=== PATIENT | male | born 1980 | race African-American/Black ===

== ENCOUNTER 2016-07-25 08:43 | Inpatient (IN) | payer MEDICARE, OTHER ==
[~2016-07-25] VITALS: Ht 175.3 cm; Wt 81.4 kg
[~2016-07-25 08:43] MED LIST: HALO100P IM; NEUR300C PO
[2016-07-25 08:45] VITALS: BP 142/85; PULSE 99; RESP 20; TEMP 97.9; O2SAT 96
[2016-07-25 10:24] VITALS: BP 111/62; PULSE 82; RESP 18; TEMP 97.9; O2SAT 98
[2016-07-25 10:37] LABS: AUTOMATED NEUTROPHIL # 8.5 TH/MM3 (1.8-7.7); BASOPHIL % 0.5 % (0.0-2.0); EOSINOPHIL # 0.2 TH/MM3 (0-0.4); EOSINOPHIL % 2.2 % (0.0-4.0); HEMATOCRIT 45.7 % (39.0-51.0); HEMO FLAGS DIFF FINAL; LYMPH % 9.8 % (9.0-44.0); MEAN CELL VOLUME 88.4 FL (80.0-100.0); MEAN CORPUSCULAR HGB CONC 35.1 % (32.0-36.0); MONO % 6.4 % (0.0-8.0); NEUT % 81.1 % (16.0-70.0); PLATELET COUNT 232 TH/MM3 (150-450); RED BLOOD COUNT 5.17 MIL/MM3 (4.50-5.90); RED CELL DISTRIBUTION WIDTH 13.9 % (11.6-17.2); WHITE BLOOD COUNT 10.4 TH/MM3 (4.0-11.0)
[2016-07-25 10:56] LABS: ANION GAP 7 MEQ/L (5-15); BICARBONATE 27.2 MEQ/L (21.0-32.0); BLOOD UREA NITROGEN 20 MG/DL (7-18); CHLORIDE 102 MEQ/L (98-107); GLOMERULAR FILTRATION RATE 78 ML/MIN (>89); POTASSIUM 3.9 MEQ/L (3.5-5.1); SODIUM (NA) 136 MEQ/L (136-145)
[2016-07-25 11:00] LABS: ALKALINE PHOSPHATASE 65 U/L (45-117); ALT (GPT) 46 U/L (12-78); AST (GOT) 47 U/L (15-37); TOTAL BILIRUBIN ADULT 0.7 MG/DL (0.2-1.0)
--- NOTE | 2016-07-25 11:33 | PD ---
HPI Chief Complaint: Psychiatric Symptoms Time Seen by Provider: 11:30 Travel History International Travel<30 days: No Contact w/Intl Traveler<30days: No Traveled to known affect area: No History of Present Illness HPI 35-year-old Afro-Indian male presents the emergency department with reports of "hearing voices". Patient states he took a pill that his friend gave him that he said was Tylenol, but the patient is unsure if it is truly what it was. He now states he's been hearing voices since that time. Patient has been prescribed Haldol which he is unsure if he has been taking appropriately. He denies any medical issues or problems at this time. He is allergic to Abilify and Risperdal. PFSH Past Medical History Anxiety: Yes Depression: Yes Cardiovascular Problems: Yes (Cardiac Arrest during tendon surgery) Diminished Hearing: No Gastrointestinal Disorders: No Headaches: No Hypertension: Yes Implanted Vascular Access Dvce: No Psychiatric: Yes Respiratory: No Immunizations Current: Yes Schizophrenia: Yes Past Surgical History Other Surgery: Yes (chest tube in past) Social History Alcohol Use: Yes Tobacco Use: Yes (06/12 ppd) Allergies-Medications (Allergen,Severity, Reaction): Coded Allergies: Abilify (Verified Allergy, Intermediate, 07/25/16) VERIFIED WITH PATIENT THAT HE IS NOT ALLERGIC Risperdal (Verified Allergy, Mild, 07/25/16) PATIENT VERIFIED THAT HE IS NOT ALLERGIC Reported Meds & Prescriptions Reported Meds & Active Scripts Active Reported Neurontin (Gabapentin) 300 Mg Cap 300 Mg PO TID Haldol (Decanoate) 100 mg Ampule (Haloperidol Decanoate) 100 Mg/Ml Inj 100 Mg IM Q28D Review of Systems Except as stated in HPI: all other systems reviewed are Neg General / Constitutional: No: Fever Eyes: No: Visual changes HENT: No: Headaches Cardiovascular: No: Chest Pain or Discomfort Respiratory: No: Shortness of Breath Gastrointestinal: No: Abdominal Pain Genitourinary: No: Dysuria Musculoskeletal: No: Pain Skin: No Rash Neurologic: No: Weakness Psychiatric: Positive: Disorder of Thought, Other (auditory hallucination), No : Anxiety, Depression, Suicidal Ideations, Mood Disorder, Substance Abuse, Homicidal Ideation Endocrine: No: Polydipsia Hematologic/Lymphatic: No: Easy Bruising Physical Exam Narrative GENERAL: Patient is seen in J pod in no acute distress. SKIN: Warm and dry. Normal color. Normal turgor. No signs of trauma. HEAD: Atraumatic. Normocephalic. EYES: Pupils equal and round. No scleral icterus. No injection or drainage. ENT: No nasal bleeding or discharge. Mucous membranes pink and moist. Pharynx is clear. NECK: Trachea midline. Supple and nontender. CARDIOVASCULAR: Regular rate and rhythm. No murmurs gallops or rubs. RESPIRATORY: No accessory muscle use. Clear to auscultation. Breath sounds equal bilaterally. MUSCULOSKELETAL: Extremities without clubbing, cyanosis, or edema. No obvious deformities. NEUROLOGICAL: Awake and alert. No obvious cranial nerve deficits. Motor grossly within normal limits. Five out of 5 muscle strength in the arms and legs. Normal speech. PSYCHIATRIC: Appropriate mood and affect; insight and judgment normal. Data Data Last Documented VS Vital Signs Date Time Temp Pulse Resp B/P Pulse Ox O2 Delivery O2 Flow Rate FiO2 07/25/16 10:24 97.9 82 18 111/62 98 Room Air Orders Diet Regular Basic (07/25/16 Breakfast) Diet Regular Basic (07/25/16 Lunch) Psych Screen (07/25/16 09:38) Complete Blood Count With Diff (07/25/16 10:02) Comprehensive Metabolic Panel (07/25/16 10:02) Drug Screen, Random Urine (07/25/16 10:02) Alcohol (Ethanol) (07/25/16 10:02) Labs Laboratory Tests Test 07/25/16 10:12 White Blood Count 10.4 TH/MM3 Red Blood Count 5.17 MIL/MM3 Hemoglobin 16.0 GM/DL Hematocrit 45.7 % Mean Corpuscular Volume 88.4 FL Mean Corpuscular Hemoglobin 31.0 PG Mean Corpuscular Hemoglobin 35.1 % Concent Red Cell Distribution Width 13.9 % Platelet Count 232 TH/MM3 Mean Platelet Volume 7.8 FL Neutrophils (%) (Auto) 81.1 % Lymphocytes (%) (Auto) 9.8 % Monocytes (%) (Auto) 6.4 % Eosinophils (%) (Auto) 2.2 % Basophils (%) (Auto) 0.5 % Neutrophils # (Auto) 8.5 TH/MM3 Lymphocytes # (Auto) 1.0 TH/MM3 Monocytes # (Auto) 0.7 TH/MM3 Eosinophils # (Auto) 0.2 TH/MM3 Basophils # (Auto) 0.0 TH/MM3 CBC Comment DIFF FINAL Differential Comment Sodium Level 136 MEQ/L Potassium Level 3.9 MEQ/L Chloride Level 102 MEQ/L Carbon Dioxide Level 27.2 MEQ/L Anion Gap 7 MEQ/L Blood Urea Nitrogen 20 MG/DL Creatinine 1.29 MG/DL Estimat Glomerular Filtration 78 ML/MIN Rate Random Glucose 117 MG/DL Calcium Level 9.0 MG/DL Total Bilirubin 0.7 MG/DL Aspartate Amino Transf 47 U/L (AST/SGOT) Alanine Aminotransferase 46 U/L (ALT/SGPT) Alkaline Phosphatase 65 U/L Total Protein 7.9 GM/DL Albumin 4.1 GM/DL Ethyl Alcohol Level LESS THAN 3 MG/DL [facility] Medical Decision Making Medical Screen Exam Complete: Yes Emergency Medical Condition: Yes Differential Diagnosis Psychosis. Auditory hallucination. Possible drug effect. Need for medical clearance for psychiatric evaluation. Narrative Course Patient is medically stable at time of exam. Labs ordered including CBC, CMP, and urine drug screen. Patient is medically cleared for psychiatric evaluation. Diagnosis Primary Impression: Auditory hallucinations Additional Impression: Medical clearance for psychiatric admission Condition: Stable Phillip Lopez Jul 25, 2016 11:33
[2016-07-25 12:57] LABS: AMPHETAMINE, URINE NEG (NEG); BARBITURATES, URINE NEG (NEG); COCAINE, URINE NEG (NEG)
--- NOTE | 2016-07-25 14:03 | PD ---
History of Present Illness Chief Complaint: Psychiatric Symptoms Time Seen by Provider: 13:45 Travel History International Travel<30 Days: No Contact w/Intl Traveler<30days: No Known affected area: No Legal Status Legal Status: Voluntary History of Present Illness: History of Present Illness HPI 35-year-old Afro-[place]i male with history of schizophrenia who presents the emergency department on a voluntary basis for psychiatric evaluation. His main complaint is that he has had an increase in auditory hallucinations for the past 12 hours after he took a pill he thought was Tylenol. He further complains of current psychiatric medication not working well. He receives Haldol dec injections prescribed by [facility] and last reported injection was a month ago. He denies any substance use and current toxicology is negative. He does have a past hx opf substance abuse as per EMR. Patient is seen in J pod. Awake , alert and oriented. Dressed in hospital gowns and maintaining basic hygiene. No involuntary movements noted. He answers questions but does not initiate interaction. He appears internally preoccupied and reports increase in voices. He does not elaborate on the content of the voices and states " I don't want to elaborate on that". He denies suicidal or homicidal ideation, intent or plan. Sleeping well, good appetite is reported. I attempted to contact [facility] listed on EMR but unable to leave a message at the listed phone number. PFSH Past Medical History Anxiety: Yes Depression: Yes Cardiovascular Problems: Yes (Cardiac Arrest during tendon surgery) Diminished Hearing: No Gastrointestinal Disorders: No Headaches: No Hypertension: Yes Implanted Vascular Access Dvce: No Psychiatric: Yes Respiratory: No Immunizations Current: Yes Schizophrenia: Yes Past Surgical History Other Surgery: Yes (chest tube in past) Psychiatric History Psychiatric History Hx Psychiatric Treatment: HX OF SCHIZOPHRENIA. IS TAKING HALDOL INJECTION BUT DOES NOT THINK IT IS WORKING. OUTPATIENT CARE AT [facility] History of Inpatient Treatment: Yes Guns or firearms in home: No Social History Single male. Lives with his mother.On disability. Currently on probation Hx Alcohol Use: Yes Hx Tobacco Use: Yes (06/12 ppd) Substance Use Type: Benzos (Valium,Xanax), Cocaine Other Substances Used: PAST HX OF COCAINE AND MARIJUANA Hx of Substance Use Treatment: No Family Psychiatric History Unknown Allergies-Medications (Allergen,Severity, Reaction): Coded Allergies: Abilify (Verified Allergy, Intermediate, 07/25/16) VERIFIED WITH PATIENT THAT HE IS NOT ALLERGIC Risperdal (Verified Allergy, Mild, 07/25/16) PATIENT VERIFIED THAT HE IS NOT ALLERGIC Reported Meds & Prescriptions Reported Meds & Active Scripts Active Reported Neurontin (Gabapentin) 300 Mg Cap 300 Mg PO TID Haldol (Decanoate) 100 mg Ampule (Haloperidol Decanoate) 100 Mg/Ml Inj 100 Mg IM Q28D Review of Systems Constitutional: DENIES: Diaphoretic episodes, Fatigue, Fever, Weight gain, Weight loss, Chills, Dizziness, Change in appetite, Night Sweats Endocrine: DENIES: Heat/cold intolerance, Polydipsia, Polyuria, Polyphagia Eyes: DENIES: Blurred vision, Diplopia, Eye inflammation, Eye pain, Vision loss , Photosensitivity, Double Vision Ears, nose, mouth, throat: DENIES: Tinnitus, Hearing loss, Vertigo, Nasal discharge, Oral lesions, Throat pain, Hoarseness, Ear Pain, Running Nose, Epistaxis, Sinus Pain, Toothache, Odynophagia Respiratory: DENIES: Apneas, Cough, Snoring, Wheezing, Hemoptysis, Sputum production, Shortness of breath Cardiovascular: DENIES: Chest pain, Palpitations, Syncope, Dyspnea on Exertion , PND, Lower Extremity Edema, Orthopnea, Claudication Genitourinary: DENIES: Sexual dysfunction, Urinary frequency, Urinary incontinence, Urgency, Hematuria, Dysuria, Nocturia, Penile Discharge, Testicular Pain, Testicular Swelling Musculoskeletal: DENIES: Joint pain, Muscle aches, Stiffness, Joint Swelling, Back pain, Neck pain Integumentary: DENIES: Abnormal pigmentation, Nail changes, Pruritus, Rash Immunologic/allergic: DENIES: Eczema, Urticaria Neurologic: DENIES: Abnormal gait, Headache, Localized weakness, Paresthesias, Seizures, Speech Problems, Tremor, Poor Balance Psychiatric: COMPLAINS OF: Hallucinations MDM Medical Decision Making Medical Record Reviewed: Yes Assessment/Plan 35 year old male with hx of schizophrenia who presents to ed on a voluntary basis with complaints of increase in auditory hallucinations as well as complaints that current psychiatric medication is not working well. He is requesting inpatient hospitalization at this time. He denies suicidal or homicidal ideation, intent or plan. At this time patient meets criteria for inpatient treatment due to increase in psychiatric symptoms causing distress and inability to function. Orders Diet Regular Basic (07/25/16 Breakfast) Diet Regular Basic (07/25/16 Lunch) Psych Screen (07/25/16 09:38) Complete Blood Count With Diff (07/25/16 10:02) Comprehensive Metabolic Panel (07/25/16 10:02) Drug Screen, Random Urine (07/25/16 10:02) Alcohol (Ethanol) (07/25/16 10:02) Results Vital Signs Date Time Temp Pulse Resp B/P Pulse Ox O2 Delivery O2 Flow Rate FiO2 07/25/16 10:24 97.9 82 18 111/62 98 Room Air 07/25/16 08:45 97.9 99 20 142/85 96 Room Air Laboratory Tests Test 07/25/16 07/25/16 10:12 12:30 White Blood Count 10.4 Red Blood Count 5.17 Hemoglobin 16.0 Hematocrit 45.7 Mean Corpuscular Volume 88.4 Mean Corpuscular Hemoglobin 31.0 Mean Corpuscular Hemoglobin 35.1 Concent Red Cell Distribution Width 13.9 Platelet Count 232 Mean Platelet Volume 7.8 Neutrophils (%) (Auto) 81.1 Lymphocytes (%) (Auto) 9.8 Monocytes (%) (Auto) 6.4 Eosinophils (%) (Auto) 2.2 Basophils (%) (Auto) 0.5 Neutrophils # (Auto) 8.5 Lymphocytes # (Auto) 1.0 Monocytes # (Auto) 0.7 Eosinophils # (Auto) 0.2 Basophils # (Auto) 0.0 CBC Comment DIFF FINAL Differential Comment Sodium Level 136 Potassium Level 3.9 Chloride Level 102 Carbon Dioxide Level 27.2 Anion Gap 7 Blood Urea Nitrogen 20 Creatinine 1.29 Estimat Glomerular Filtration 78 Rate Random Glucose 117 Calcium Level 9.0 Total Bilirubin 0.7 Aspartate Amino Transf 47 (AST/SGOT) Alanine Aminotransferase 46 (ALT/SGPT) Alkaline Phosphatase 65 Total Protein 7.9 Albumin 4.1 Ethyl Alcohol Level LESS THAN 3 Urine Opiates Screen NEG Urine Barbiturates Screen NEG Urine Amphetamines Screen NEG Urine Benzodiazepines Screen NEG Urine Cocaine Screen NEG Urine Cannabinoids Screen NEG Diagnosis Primary Impression: schizophrenia Ruled Out: Medical clearance for psychiatric admission Admitting Information Admitting Physician Requests: Admit Condition: Stable Jossie Jacobsen Jul 25, 2016 14:02
[2016-07-25 14:37] VITALS: BP 124/61; PULSE 78; RESP 16; O2SAT 98
[2016-07-25] MEDS ORDERED: ALUMINUM/MAGNESIUM/SIMETH 30 ML CUP PO PRN (15:00)
[2016-07-25] MEDS ORDERED: MAGNESIUM HYDROXIDE SUSP 30 ML CUP PO PRN (15:00)
[2016-07-25] MEDS ORDERED: ACETAMINOPHEN 325 MG TAB PO PRN (15:00)
[2016-07-25] MEDS ORDERED: OLANZapine ODT 5 MG TAB PO ONE (15:00)
[2016-07-25 16:58] VITALS: BP 121/80; PULSE 71; RESP 17; TEMP 98.2; O2SAT 96
[2016-07-25] MEDS: GABAPENTIN 300 MG CAP PO SCH (17:00)
[2016-07-25] MEDS: NICOTINE 21 MG/24 HR PATCH T-DERMAL SCH (17:00)
[2016-07-26 05:07] VITALS: BP 97/55; PULSE 64; RESP 18; TEMP 97; O2SAT 100
[2016-07-26] MEDS: REMOVE OLD PATCH T-DERMAL SCH (09:00)
[2016-07-26 09:04] LABS: ANION GAP 8 MEQ/L (5-15); BICARBONATE 27.9 MEQ/L (21.0-32.0); BLOOD UREA NITROGEN 15 MG/DL (7-18); CHLORIDE 101 MEQ/L (98-107); GLOMERULAR FILTRATION RATE 79 ML/MIN (>89); HDL CHOLESTEROL 67.6 MG/DL (40.0-60.0); LDL CHOLESTEROL 154 MG/DL (0-99); POTASSIUM 3.7 MEQ/L (3.5-5.1); SODIUM (NA) 137 MEQ/L (136-145)
[2016-07-26] MEDS: NICOTINE 21 MG/24 HR PATCH T-DERMAL SCH (09:06)
[2016-07-26] MEDS: GABAPENTIN 300 MG CAP PO SCH (09:06)
--- NOTE | 2016-07-26 10:55 | HHI.HP ---
Provisional Diagnosis Admission Date Jul 25, 2016 at 14:28 Forreston I. 1. Schizophrenia, paranoid type, acute exacerbation Forreston II. Deferred Forreston V. GAF is 30 presently Certification of Person's Competence To Provide Express and Informed Consent I have personally examined Rj Wood , a [facility] on, Jul 26, 2016 10:55. Express and informed consent means consent voluntarily given in writing, by a competent person, after sufficient explanation and disclosure of the subject matter involved to enable the person to make a knowing and willful decision without any element of force, fraud, deceit, duress, or other form of constraint or coercion. This person is 18 years of age or older, is not now known to be incompetent to consent to treatment with a guardian advocate, and does not have a health care surrogate or proxy currently making medical treatment decisions. I have found this person to be one of the following: [x] Competent to provide express and informed consent, as defined above, for voluntary admission to this facility and is competent to provide express and informed consent for treatment. He/she has the consistent capacity to make well reasoned, willful, and knowing decisions concerning his or her medical or mental health treatment. The person fully and consistently understands the purpose of the admission for examination/placement and is fully capable of personally exercising all rights [place] [] Incompetent to provide express and informed consent to voluntary admission, and this is incompetent to provide express and informed consent to treatment. The person must be transferred to involuntary status and a petition for a guardian advocate filed with the Circuit Court. [] Refusing to provide express and informed consent to voluntary admission but is competent to provide express and informed consent for treatment. The person must be discharged or transferred to involuntary status. Form shall be completed within 24 hours of a person's arrival at the receiving facility and filed in the clinical record of each person: 1. Admitted on a voluntary basis 2. Permitted to provide express and informed consent to his/her own treatment 3. Allowed to transfer from involuntary to voluntary status 4. Prior to permitting a person to consent to his or her own treatment after having been previously found incompetent to consent to treatment. History of Present Illness Capacity: Has Capacity HPI Mr. Wood is a 35-year-old male with a history of schizophrenia who presented on a voluntary basis for psychiatric evaluation complaining of worsening auditory hallucinations. He believes that these hallucinations became exacerbated when he took what he thought was an analgesic from his friend. Patient was evaluated by the psychiatric nurse practitioner who recommended admission to the inpatient psychiatric unit. Reviewing the electronic medical record, I note that the patient was admitted most recently under Dr. Wade in October 2014 and I saw the patient somewhat later that year in consultation when he was medically admitted for a broken mandible. Patient seen and examined with medical student and counselor financial services intern. Chart reviewed. Case discussed with nursing staff. On my examination today, the patient is hypoverbal and flat. He is somewhat reluctant to discuss his psychiatric symptomatology but says that he has indeed been experiencing worsening auditory hallucinations. He says "I don't like to talk about it." He is not sure if these are command in nature but denies any suicidal or homicidal ideation in any event. He says that the auditory hallucinations have been worse since yesterday, and he relates that narrative about taking a pill from a friend. He is unsure if he is experiencing visual hallucinations. Appetite has reportedly been poor but sleep has been fair. He says that he derived a significant amount of benefit from the Zyprexa that he was given yesterday afternoon. No issues with depression or hypomania/zora. Patient is somewhat guarded but there is no alexandrea delusional material. The remainder of the psychiatric ROS is negative. Past psychiatric history: Patient is treated at [facility] for schizophrenia. He sees Jamari at [facility] and also has a manager case management by the name of Rossy. He says that it's been over a year since he was hospitalized last. He denies any history of suicide attempts. Family history: Patient denies any family history of serious mental illness or suicide. Chemical dependency history: The patient denies any abuse of drugs or alcohol. Social history: Patient reports that he had previously been staying with his mother but has been without stable housing for the last several days. I endeavored to explore why this is the case, but he does not wish to discuss it. He does not wish to provide further history at this time. Review of Systems ROS Limitations: Psychotic, Poor Historian Other No reported headache, chest pain, vision or hearing complaints except hallucinations, shortness of breath, bowel or bladder issues. No other physical complaints. Past Psych History Psychological trauma history No reported trauma history to me Violence risk - others (6 mos) Indeterminate Violence risk - self (6 mos) Indeterminate Substance Abuse History Drugs/Alcohol past 12 months See above Past Family Social History Coded Allergies: Abilify (Verified Allergy, Intermediate, 07/25/16) VERIFIED WITH PATIENT THAT HE IS NOT ALLERGIC Risperdal (Verified Allergy, Mild, 07/25/16) PATIENT VERIFIED THAT HE IS NOT ALLERGIC Past Medical History See electronic medical record Reported Medications Gabapentin (Neurontin)300 Mg [id number] Mg PO TID 02/17/16 Haloperidol Decanoate (Haldol (Decanoate) 100 mg Ampule)100 Mg/Ml [id number] Mg IM Q28D 10/21/15 Current Medications Medications (Trade) Dose Ordered Sig/Alexei Route Start Time Stop Time Status Last Admin (Tylenol) 650 mg Q4H PRN PO 07/25/16 15:00 (Milk Of Magnesia Liq) 30 ml DAILY PRN PO 07/25/16 15:00 (Mag-Al Plus Susp Liq) 30 ml Q6H PRN PO 07/25/16 15:00 (Habitrol 21 Mg Patch.24 Hr) 1 patch DAILY T-DERMAL 07/25/16 15:00 07/26/16 09:06 Miscellaneous Information 1 DAILY T-DERMAL 07/26/16 09:00 07/26/16 09:00 (Neurontin) 300 mg TID PO 07/25/16 18:00 07/26/16 09:06 Family History See above Social History See above Patient's Strengths (min. 2) Maintaining basic hygiene. Verbally fluent. Physical Exam Physical examination completed by ED provider. On my examination today, patient is well-nourished and well-developed. He is in no acute physical distress. No motoric abnormalities noted. Labs and vital signs reviewed: Vital Signs Vital Signs Date Time Temp Pulse Resp B/P Pulse Ox O2 Delivery O2 Flow Rate FiO2 07/26/16 05:07 97.0 64 18 97/55 100 07/25/16 14:37 Room Air Lab Results Item Value Date Time White Blood Count 10.4 TH/MM3 07/25/16 1012 Hemoglobin 16.0 GM/DL 07/25/16 1012 Platelet Count 232 TH/MM3 07/25/16 1012 Sodium Level 137 MEQ/L 07/26/16 0800 Potassium Level 3.7 MEQ/L 07/26/16 0800 Chloride Level 101 MEQ/L 07/26/16 0800 Carbon Dioxide Level 27.9 MEQ/L 07/26/16 0800 Blood Urea Nitrogen 15 MG/DL 07/26/16 0800 Creatinine 1.27 MG/DL 07/26/16 0800 Aspartate Amino Transf (AST/SGOT) 47 U/L H 07/25/16 1012 Alanine Aminotransferase (ALT/SGPT) 46 U/L 07/25/16 1012 Alkaline Phosphatase 65 U/L 07/25/16 1012 Basic urine toxicology and alcohol level both negative. Mental Status Examination Patient is in hospital gown. He is fairly well groomed. He is awake and alert and oriented to person and hospital at least. No abnormal motor movements noted. Speech is somewhat slow with increased speech latency. He is generally hypoverbal. Language and fund of knowledge seem average. Mood is somewhat distressed and affect is flat. Thought process slowed but linear. No loosening of associations. Patient is somewhat guarded but no alexandrea paranoia or other delusions. The patient describes auditory hallucinations and possibly visual phenomena as detailed above. Denies any suicidal or homicidal ideation. Insight and judgment are fair. Assessment & Plan Problem List: (1) Schizophrenia, paranoid, chronic with acute exacerbation ICD Code: F20.0 Assessment & Plan This is a 35-year-old male with psychiatric history as detailed above who presents voluntarily for reports of worsening auditory hallucinations. Patient says that these symptoms began after he took what he thought was a Tylenol from a friend. Patient describes ongoing auditory and possible visual hallucinations. He is somewhat guarded. He does deny any suicidal or homicidal ideation. Reviewing the records it appears that he is receiving Haldol Decanoate injections at [facility]. He did find the Zyprexa that he received yesterday afternoon helpful for his psychiatric symptoms, and so I think it might make sense to add this agent temporarily to bring his psychosis once again under good control. Patient requires psychiatric hospitalization at this time for safety, observation and stabilization. Admit inpatient. Voluntary status. Check extended urine toxicology screen. Clarify medication list from [facility]. I will add Zyprexa 5 mg at bedtime for psychosis. Ativan as needed for agitation, Cogentin as needed for EPS, Benadryl as needed for sleep. Vitals every shift. Counselor to see and obtain collateral. Disposition planning. Estimated length of stay: 5-7 days. Discharge Planning Pending psychiatric stabilization Request HC Surrog/Guard Advoc?: No Lito Andrade MD Jul 26, 2016 10:55
[2016-07-26] MEDS ORDERED: LORazepam 2 MG/ML VIAL IM PRN (11:15)
[2016-07-26] MEDS ORDERED: LORazepam 1 MG TAB PO PRN (11:15)
[2016-07-26] MEDS ORDERED: BENZTROPINE MESYLATE 2 MG/2 ML VIAL IM PRN (11:15)
[2016-07-26] MEDS ORDERED: diphenhydrAMINE HCL 50 MG CAP PO PRN (11:15)
[2016-07-26] MEDS ORDERED: BENZTROPINE MESYLATE 1 MG TAB PO PRN (11:15)
[2016-07-26 14:10] LABS: HEMOGLOBIN A1a 0.9 %; HEMOGLOBIN A1b 1.5 %; HEMOGLOBIN Ao 86.9 %; HEMOGLOBIN LA1C 1.8 %; HEMOGLOBIN P3 3.3 %
[2016-07-26 18:47] VITALS: BP 124/82; PULSE 80; RESP 18; TEMP 97.9; O2SAT 99
[2016-07-26] MEDS ORDERED: OLANZapine 10 MG TAB PO SCH (21:00)
[2016-07-26] MEDS: OLANZapine 5 MG TAB PO SCH (21:13)
[2016-07-27 04:49] LABS: AMPHETAMINE, URINE NEG (NEG); BARBITURATES, URINE NEG (NEG); COCAINE, URINE NEG (NEG)
[2016-07-27 05:51] VITALS: BP 111/64; PULSE 56; RESP 16; TEMP 98; O2SAT 98
[2016-07-27] MEDS: REMOVE OLD PATCH T-DERMAL SCH (09:00)
[2016-07-27] MEDS: NICOTINE 21 MG/24 HR PATCH T-DERMAL SCH (09:00)
--- NOTE | 2016-07-27 15:30 | HHI.PYPN ---
Subjective Remarks Pt seen and discussed with staff. He reports that he continues to have AH. He reports that symptoms were well controlled on Haldol dec until he took a "fake tylenol" from a friend. RN contacted [facility] who reports that pt's last Haldol dec 50mg IM adminstration was June 27, 2016. Pt would like to continue haldol dec as has had good success with this medication. No agitation or aggression. Staff report that pt has remained in room all day under covers, due to AH. Objective Alert: Yes [place]: Person, Place, Situation Mood: Anxious Affect: Flat Memory Intact: Immediate, Recent, Remote Hallucinations: Auditory ("terrible things") Delusions: No Delusion Type: Other (none) Suicidal: Ideation (denies) Homicidal: Ideation (denies) Insight/Judgement poor Vitals/IOs Vital Signs Date Time Temp Pulse Resp B/P Pulse Ox O2 Delivery O2 Flow Rate FiO2 07/27/16 05:51 98.0 56 16 111/64 98 07/25/16 14:37 Room Air Intake and Output 07/26/16 07/26/16 07/27/16 08:00 16:00 00:00 Intake Total 720 ml Balance 720 ml Assessment & Plan Problem List: (1) Schizophrenia, paranoid, chronic with acute exacerbation ICD Code: F20.0 Assessment & Plan Will administer Haldol Dec 50mg IM today as is due. Continue bedtime zyprexa temporarily to address exacerbation of psychosis. Estimated LOS: days Justification for Cont. Inpt. impairments in reality construction. Request HC Surrog/Guard Advoc?: Kaci Bernstein MD Jul 27, 2016 15:30
[2016-07-27] MEDS: HALOPERIDOL DECANOATE 50 MG/ML VIAL IM SCH ×2 (16:00→16:30)
[2016-07-27 18:48] VITALS: BP 114/61; PULSE 65; RESP 16; TEMP 98.6; O2SAT 98
[2016-07-27] MEDS: OLANZapine 5 MG TAB PO SCH (20:45)
[2016-07-28 05:29] VITALS: BP 115/68; PULSE 65; RESP 17; TEMP 98.1; O2SAT 100
[2016-07-28] MEDS: REMOVE OLD PATCH T-DERMAL SCH (09:00)
[2016-07-28] MEDS: NICOTINE 21 MG/24 HR PATCH T-DERMAL SCH (09:35)
--- NOTE | 2016-07-28 16:13 | HHI.PYPN ---
Subjective Remarks Pt seen and discussed with staff. Yesterday, pt refused haldol deconate injection. Pt states that he feels that haldol did not help symptoms and he continued to hear voices and feel paranoid even before taking unknown substance from his cousin. He states that he does feel zyprexa is helpful and would prefer to take that instead. He reports AH continue to be impairing but he has been able to "fight them" a bit better today. He has been out of room more this afternoon. Objective Alert: Yes [place]: Person, Place, Date, Situation Mood: Anxious Affect: Flat Memory Intact: Immediate, Recent, Remote Hallucinations: Auditory ("terrible things") Delusions: No Delusion Type: Other (none) Suicidal: Ideation (denies) Homicidal: Ideation (denies) Insight/Judgement limited Vitals/IOs Vital Signs Date Time Temp Pulse Resp B/P Pulse Ox O2 Delivery O2 Flow Rate FiO2 07/28/16 05:29 98.1 65 17 115/68 100 07/25/16 14:37 Room Air Assessment & Plan Problem List: (1) Schizophrenia, paranoid, chronic with acute exacerbation ICD Code: F20.0 Assessment & Plan As pt is refusing to continue haldol deconoate, will titrate zyprexa to target psychosis. Estimated LOS: days Justification for Cont. Inpt. impairments in reality construction. Request HC Surrog/Guard Advoc?: Kaci Bernstein MD Jul 28, 2016 16:13
[2016-07-28 18:27] VITALS: BP 125/75; PULSE 70; RESP 16; TEMP 98.2; O2SAT 98
[2016-07-28] MEDS ORDERED: OLANZapine 10 MG TAB PO SCH (21:00)
[2016-07-29 05:00] VITALS: BP 130/69; PULSE 78; RESP 18; TEMP 98.1; O2SAT 96
[2016-07-29] MEDS: REMOVE OLD PATCH T-DERMAL SCH (08:24)
[2016-07-29] MEDS: NICOTINE 21 MG/24 HR PATCH T-DERMAL SCH (08:24)
--- NOTE | 2016-07-29 14:50 | HHI.PYPN ---
Subjective Remarks Patient seen and examined. Chart reviewed. Case discussed with nursing staff who reports patient is fairly seclusive to room. On my examination today, patient is awake and alert and more interactive than when I saw him last. He continues to complain of vague auditory hallucinations. When specifically asked he does say that these are command in nature, but it is not clear what they are commanding him to do. No evidence of any suicidality or violence on the unit so far. Patient denies any suicidal or homicidal ideation. He says that his optics technical officer wants him to get into a six-month chemical dependency program and he wonders if we can help with this. He denies side effects from Zyprexa and is agreeable to titrating this agent. He is not interested in continuing with Haldol Decanoate. Review of Systems Other No physical complaints today Objective Alert: Yes [place]: Person, Place, Date, Situation Mood: Calm Affect: Flat Memory Intact: Comment (seems fair on clinical exam) Hallucinations: Auditory (reports command auditory hallucinations, vague) Delusions: No Delusion Type: Other (no delusional material) Suicidal: Ideation (denies suicidal ideation) Homicidal: Ideation (denies homicidal ideation) Insight/Judgement Fair Remarks No abnormal motor movements noted. Thought process linear. Speech within normal limits for rate, tone and volume. Labs Labs reviewed. No new labs. Extended urine toxicology pending. Vitals/IOs Vital Signs Date Time Temp Pulse Resp B/P Pulse Ox O2 Delivery O2 Flow Rate FiO2 07/29/16 05:00 98.1 78 18 130/69 96 07/25/16 14:37 Room Air Assessment & Plan Problem List: (1) Schizophrenia, paranoid, chronic with acute exacerbation ICD Code: F20.0 Assessment & Plan Titrate Zyprexa to 15 mg at bedtime. I discussed the case with counselor and asks that he provide the patient with resources to try to achieve his goal of some sort of long-term drug and alcohol treatment program. Continue to observe on the inpatient unit. Continue other medications and care as ordered. Justification for Cont. Inpt. Impairments in reality construction. Monitoring for impairments in safety. Medication changes in process. Risk for decompensation in a lower level of care. Discharge Planning Pending psychiatric stabilization. Request HC Surrog/Guard Advoc?: No Lito Andrade MD Jul 29, 2016 14:50
[2016-07-29 17:22] VITALS: BP 134/80; PULSE 65; RESP 18; TEMP 98; O2SAT 98
[2016-07-29] MEDS ORDERED: OLANZapine 10 MG TAB PO SCH (21:00)
[2016-07-30 05:32] VITALS: BP 104/57; PULSE 65; RESP 18; TEMP 98; O2SAT 94
[2016-07-30] MEDS: REMOVE OLD PATCH T-DERMAL SCH (08:40)
[2016-07-30] MEDS: NICOTINE 21 MG/24 HR PATCH T-DERMAL SCH (08:41)
--- NOTE | 2016-07-30 17:35 | HHI.PYPN ---
Subjective Remarks Patient seen and examined. Chart reviewed. Case discussed with counselor and nursing staff in treatment team. Per nursing staff, no behavioral problems. On my examination today, the patient seems to be in good spirits. His affect is bright, full and reactive. He reports that he has been calling around extensively to try to get into the sort of long-term chemical dependency treatment program requested by his strike warfare/missile systems officer. He says that he is still experiencing some auditory hallucinations but these are improving with Zyprexa. He requests that we titrate the Zyprexa dose. He denies side effects from this or other medications. Review of Systems Other No physical complaints today Objective Alert: Yes [place]: Person, Place, Date, Situation Mood: Calm Affect: Euthymic (full and reactive) Memory Intact: Comment (seems fair on clinical exam) Hallucinations: Auditory (does not describe any CAH today. Ongoing vague auditory hallucinations.) Delusions: No Delusion Type: Other (no delusions) Suicidal: Ideation (no SI) Homicidal: Ideation (no HI) Insight/Judgement Fair Remarks No abnormal motor movements noted. Thought process linear. Speech within normal limits for rate, tone and volume. Grooming and hygiene seem good. Labs Labs reviewed. No new labs. Extended urine toxicology pending. Vitals/IOs Vital Signs Date Time Temp Pulse Resp B/P Pulse Ox O2 Delivery O2 Flow Rate FiO2 07/30/16 05:32 98.0 65 18 104/57 94 Assessment & Plan Problem List: (1) Schizophrenia, paranoid, chronic with acute exacerbation ICD Code: F20.0 Assessment & Plan Titrate Zyprexa to target residual psychotic symptoms. Patient overall seems to be improving significantly. Patient to continue to call around to try to get into a long-term chemical dependency program. Counselor to assist with this as necessary. Continue other medications and care as ordered. Justification for Cont. Inpt. Resolving impairments in reality construction. Medication changes. Discharge Planning Ideally, discharge to a chemical dependency treatment program as outlined above. Request HC Surrog/Guard Advoc?: No Lito Andrade MD Jul 30, 2016 17:35
[2016-07-30 20:44] VITALS: BP 117/80; PULSE 80; RESP 18; TEMP 96; O2SAT 98
[2016-07-30] MEDS ORDERED: OLANZapine 10 MG TAB PO SCH (21:00)
[2016-07-31 05:03] VITALS: BP 104/55; PULSE 62; RESP 18; TEMP 98.1; O2SAT 94
[2016-07-31] MEDS: NICOTINE 21 MG/24 HR PATCH T-DERMAL SCH (08:30)
[2016-07-31] MEDS: REMOVE OLD PATCH T-DERMAL SCH (08:30)
[2016-07-31] MEDS ORDERED: ZYPR20TA PO (13:42)
--- NOTE | 2016-07-31 13:42 | HHI.DS ---
Psychiatry Discharge Summary Inpatient Psychiatric care?: Yes Advance Directive: No Reason Not Provided: Due to Patient Condition Mental Health AdvanceDirective: No Health Care Proxy: No Admission Admission Date Jul 25, 2016 at 14:28 Admission Diagnosis: (1) Schizophrenia, paranoid, chronic with acute exacerbation ICD Code: F20.0 Brief History Mr. Wood is a 35-year-old male with a history of schizophrenia who presented on a voluntary basis for psychiatric evaluation complaining of worsening auditory hallucinations. He believes that these hallucinations became exacerbated when he took what he thought was an analgesic from his friend. Patient was evaluated by the psychiatric nurse practitioner who recommended admission to the inpatient psychiatric unit. Reviewing the electronic medical record, I note that the patient was admitted most recently under Dr. Wade in October 2014 and I saw the patient somewhat later that year in consultation when he was medically admitted for a broken mandible. Patient seen and examined with medical student and counselor customer marketing intern. Chart reviewed. Case discussed with nursing staff. On my examination today, the patient is hypoverbal and flat. He is somewhat reluctant to discuss his psychiatric symptomatology but says that he has indeed been experiencing worsening auditory hallucinations. He says "I don't like to talk about it." He is not sure if these are command in nature but denies any suicidal or homicidal ideation in any event. He says that the auditory hallucinations have been worse since yesterday, and he relates that narrative about taking a pill from a friend. He is unsure if he is experiencing visual hallucinations. Appetite has reportedly been poor but sleep has been fair. He says that he derived a significant amount of benefit from the Zyprexa that he was given yesterday afternoon. No issues with depression or hypomania/zora. Patient is somewhat guarded but there is no alexandrea delusional material. The remainder of the psychiatric ROS is negative. Past psychiatric history: Patient is treated at [facility] for schizophrenia. He sees Jamari at [facility] and also has a case management social worker by the name of Rossy. He says that it's been over a year since he was hospitalized last. He denies any history of suicide attempts. Family history: Patient denies any family history of serious mental illness or suicide. Chemical dependency history: The patient denies any abuse of drugs or alcohol. Social history: Patient reports that he had previously been staying with his mother but has been without stable housing for the last several days. I endeavored to explore why this is the case, but he does not wish to discuss it. He does not wish to provide further history at this time. Tobacco Use In Past 30 Days: 5 or More Cigarettes/Day Alcohol Use: Never Hospital Course Patient was admitted to a locked, inpatient psychiatric unit. Appropriate precautions were in place throughout patient's hospital stay. Patient was seen and examined daily on the unit by psychiatry and also visited by counselor. Medications were adjusted. Patient tolerated medications well without side effects. Patient had improvement in his presenting psychiatric symptomatology. There was no evidence of any suicidality or homicidality on the inpatient unit. Patient remained in good behavioral control and was compliant with medications except the Haldol Decanoate which he did not wish to continue. Reviewing clinical data it appears that the patient is sleeping and eating well. On the day of discharge: Patient seen and examined. Chart reviewed. Case discussed with nursing staff. No behavioral problems reported. On my examination today, the patient is requesting discharge from the inpatient psychiatric unit. He says that he has been in contact with a dealer compliance representative from the [facility] and wants to be discharged so that he can meet up with this dealer compliance representative and his outpatient social service liaison to facilitate entry into a treatment program at [facility]. He denies any suicidal or homicidal ideation on direct questioning. Affect is full and reactive. He denies any audiovisual hallucinations saying that he has not heard any voices since this morning. He denies any command auditory hallucinations. I can elicit no paranoia, no ideas of reference, no feelings of thought insertion or withdrawal or grandiosity or other delusional material. He is tolerating the Zyprexa well without side effects and says that he will remain adherent with this medication. He is agreeable to following up on an outpatient basis with psychiatry. Weighing the acute, chronic, and protective factors, I appellate court judge that the patient does not meet criteria presently for involuntary psychiatric hospitalization under the [place] act. At the same time, the patient reports that his auditory hallucinations only resolved this morning. I have strongly recommended that the patient remain on the inpatient psychiatric unit for further observation to ensure that his psychiatric symptomatology remains improved. The patient refuses and insists on discharge today. Given that I have no basis to retain him involuntarily at this time I will arrange for his discharge AGAINST MEDICAL ADVICE. I have explained to the patient that he is leaving AGAINST MEDICAL ADVICE and he understands. Patient is to follow-up psychiatrically as arranged by counselor. Patient is also to follow-up with primary care. I have counseled the patient regarding warning signs for need to return to the psychiatric emergency room as part of a general safety plan. Results Blood Pressure 104 / 55 Vital Signs Date Time Temp Pulse Resp B/P Pulse Ox O2 Delivery O2 Flow Rate FiO2 07/31/16 05:03 98.1 62 18 104/55 94 Item Value Date Time White Blood Count 10.4 TH/MM3 07/25/16 1012 Hemoglobin 16.0 GM/DL 07/25/16 1012 Platelet Count 232 TH/MM3 07/25/16 1012 Sodium Level 137 MEQ/L 07/26/16 0800 Potassium Level 3.7 MEQ/L 07/26/16 0800 Chloride Level 101 MEQ/L 07/26/16 0800 Carbon Dioxide Level 27.9 MEQ/L 07/26/16 0800 Blood Urea Nitrogen 15 MG/DL 07/26/16 0800 Creatinine 1.27 MG/DL 07/26/16 0800 Aspartate Amino Transf (AST/SGOT) 47 U/L H 07/25/16 1012 Alanine Aminotransferase (ALT/SGPT) 46 U/L 07/25/16 1012 Alkaline Phosphatase 65 U/L 07/25/16 1012 Hemoglobin A1c 5.0 % 07/26/16 0800 Urine Opiates Screen NEG 07/25/16 1230 Urine Barbiturates Screen NEG 07/25/16 1230 Urine Amphetamines Screen NEG 07/25/16 1230 Urine Benzodiazepines Screen NEG 07/25/16 1230 Urine Cocaine Screen NEG 07/25/16 1230 Urine Cannabinoids Screen NEG 07/25/16 1230 Ethyl Alcohol Level LESS THAN 3 MG/DL 07/25/16 1012 Summary of Procedures None done Imaging None done Pending results at discharge: Yes (Extended UTox.) Medications # of Antipsychotic meds at D/C: 1 Approp Antipsych med options 1 - Minimum of three failed multiple trials of monotherapy. 2 - Documented plan to taper to monotherapy due to previous use of multiple meds OR cross-taper in progress at D/C. 3 - Documentation of augmentation of Clozapine. 4 - Justification other than those listed in allowable values 1-3, document here : Discharge Discharge Date: Jul 31, 2016 Discharge Diagnosis: (1) Paranoid type schizophrenia, chronic state Diagnosis: Principal ICD Code: F20.0 GAF on discharge is 55. Mental Status Exam at Disch Patient is casually dressed. He is well groomed. He is awake and alert and oriented 3. No abnormal motor movements noted. Speech is within normal limits for rate, tone and volume. Language and fund of knowledge seemed average. Mood is fair and affect is full and reactive. Thought process linear. No loosening of associations. No evident delusions. Denies audiovisual hallucinations. Denies suicidal or homicidal ideation. Insight and judgment are fair at best. Pt Condition on Discharge: Guarded (AGAINST MEDICAL ADVICE discharge) Discharge Disposition: Discharge Home Discharge Instructions Diet Instructions: As Tolerated, No Restrictions Activities you can perform: Weight Bearing as Fanta Scheduled Appointment: as per counselor's notes New Medications: Olanzapine (Zyprexa) 20 Mg Tab 20 MG PO Mental Health Days 7 Ref 3 TAB Discontinued Medications: Gabapentin (Neurontin) 300 Mg Cap 300 MG PO TID CAP Haloperidol Decanoate (Haldol (Decanoate) 100 mg Ampule) 100 Mg/Ml Inj 100 MG IM Q28D INJ Discharge Time <= 30 minutes Discharge/Advance Care Plan Health Problems: (1) Schizophrenia, paranoid, chronic with acute exacerbation Goals to promote your health * To prevent worsening of your condition and complications * To maintain your health at the optimal level Directions to meet your goals Take your medications as prescribed Follow your dietary instruction Follow activity as directed Keep your appointments as scheduled Take your immunizations and boosters as scheduled If your symptoms worsen call your PCP, if no PCP go to Urgent Care Center or Emergency Room For 30/12 questions related to your inpatient stay or results of tests pending at discharge, please contact Dr. Lito Andrade at Smoking is Dangerous to Your Health. Avoid second hand smoking Lito Andrade MD Jul 31, 2016 13:42
[2016-08-01 10:46] LABS: BATH SALTS (MDPV) UR NEG (NEG); ECSTASY (MDMA) UR NEG (NEG); HEROIN (6-ACETYLMORPHINE) UR NEG (NEG); K2 SPICE UR NEG (NEG); OBMETHADONE UR NEG (NEG); OXYCODONE (PERCODAN) NEG (NEG); PHENCYCLIDINE URINE NEG (NEG)
== END 2016-07-31 14:40 | disposition left against medical advice (07) | DRG 885 ==
LOC: NEPJ 08:43 → NEDA 14:28 → H260 16:20
PROVIDERS: ADMIT Psychiatry & Neurology Psychiatry; ATTEND Psychiatry & Neurology Psychiatry
DX: F20.0 Paranoid schizophrenia (principal); I10 Essential (primary) hypertension; F17.210 Nicotine dependence, cigarettes, uncomplicated
CPT/HCPCS: 80048; 80053; 80061; 80307; 80320; 83036; 85025; 99284; G0481; J1631

== ENCOUNTER 2016-08-03 04:35 | Emergency (ER) | payer MEDICARE, OTHER ==
[~2016-08-03] VITALS: Ht 180.3 cm; Wt 84.0 kg
[~2016-08-03 04:35] MED LIST changes: -HALO100P IM; -NEUR300C PO; +ZYPR20TA PO
[2016-08-03 04:37] VITALS: BP 144/85; PULSE 120; RESP 20; TEMP 98.5; O2SAT 96
[2016-08-03 07:00] VITALS: BP 140/62; PULSE 102; RESP 16; O2SAT 98
--- NOTE | 2016-08-03 08:55 | PD ---
HPI Chief Complaint: Psychiatric Symptoms Time Seen by Provider: 08:52 Travel History International Travel<30 days: No Contact w/Intl Traveler<30days: No Traveled to known affect area: No History of Present Illness HPI Patient comes in requesting psychiatric evaluation. Patient states that he is schizophrenic and is hearing voices. Patient denies any homicidal or suicidal ideations. Patient states he is taking his medication, Haldol, but does not seem to be helping. Denies any medical concerns at this time. Denies any chest pain, shortness of breath, nausea, vomiting, abdominal pain, or fevers. PFSH Past Medical History Anxiety: Yes Depression: Yes Cancer: No Cardiovascular Problems: Yes (HTN) Diminished Hearing: No Endocrine: No Gastrointestinal Disorders: No Genitourinary: No Headaches: No Hypertension: Yes Immune Disorder: No Implanted Vascular Access Dvce: No Musculoskeletal: No Neurologic: No Psychiatric: Yes Reproductive: No Respiratory: No Immunizations Current: Yes Schizophrenia: Yes Past Surgical History Abdominal Surgery: No Cardiac Surgery: No Ear Surgery: No Endocrine Surgery: No Eye Surgery: No Genitourinary Surgery: No Gynecologic Surgery: No Oral Surgery: Yes (jaw wired) Thoracic Surgery: No Other Surgery: Yes (chest tube in past) Social History Alcohol Use: Yes Tobacco Use: Yes (06/12 ppd) Substance Use: No Allergies-Medications (Allergen,Severity, Reaction): Coded Allergies: Abilify (Verified Allergy, Intermediate, 08/03/16) VERIFIED WITH PATIENT THAT HE IS NOT ALLERGIC Risperdal (Verified Allergy, Mild, 08/03/16) PATIENT VERIFIED THAT HE IS NOT ALLERGIC Reported Meds & Prescriptions Reported Meds & Active Scripts Active Zyprexa (Olanzapine) 20 Mg Tab 20 Mg PO HS 7 Days Review of Systems Except as stated in HPI: all other systems reviewed are Neg Physical Exam Narrative GENERAL: Well-developed, well nourished, in no acute distress, and non-ill appearing. SKIN: Warm and dry. HEAD: Atraumatic. Normocephalic. EYES: Pupils equal and round. EOMI. No scleral icterus. No injection or drainage. ENT: No nasal bleeding or discharge. Mucous membranes pink and moist. NECK: Trachea midline. Supple. No nuclear rigidity. CARDIOVASCULAR: Regular rate and rhythm. No murmur appreciated. RESPIRATORY: No accessory muscle use. No respiratory distress. Clear to auscultation. Breath sounds equal bilaterally. MUSCULOSKELETAL: No obvious deformities. No clubbing. No cyanosis. No edema. Full range of motion. NEUROLOGICAL: Awake and alert. No obvious cranial nerve deficits. Motor grossly within normal limits. Normal speech. PSYCHIATRIC: Appropriate mood and affect. Data Data Last Documented VS Vital Signs Date Time Temp Pulse Resp B/P Pulse Ox O2 Delivery O2 Flow Rate FiO2 08/03/16 07:00 102 16 140/62 98 Room Air 08/03/16 04:37 98.5 Orders Psych Screen (08/03/16 06:55) Diet Regular Basic (08/03/16 Breakfast) Complete Blood Count With Diff (08/03/16 08:43) Comprehensive Metabolic Panel (08/03/16 08:43) Drug Screen, Random Urine (08/03/16 08:43) Alcohol (Ethanol) (08/03/16 08:43) Salicylates (Aspirin) (08/03/16 08:43) Tylenol (Acetaminophen) (08/03/16 08:43) Nicotine 21 Mg Patch.24 Hr (Habitrol 21 (08/03/16 09:00) Labs Laboratory Tests Test 08/03/16 08:53 White Blood Count 10.5 TH/MM3 Red Blood Count 5.47 MIL/MM3 Hemoglobin 16.4 GM/DL Hematocrit 48.2 % Mean Corpuscular Volume 88.2 FL Mean Corpuscular Hemoglobin 29.9 PG Mean Corpuscular Hemoglobin 34.0 % Concent Red Cell Distribution Width 14.0 % Platelet Count 316 TH/MM3 Mean Platelet Volume 7.7 FL Neutrophils (%) (Auto) 73.9 % Lymphocytes (%) (Auto) 15.9 % Monocytes (%) (Auto) 9.2 % Eosinophils (%) (Auto) 0.4 % Basophils (%) (Auto) 0.6 % Neutrophils # (Auto) 7.7 TH/MM3 Lymphocytes # (Auto) 1.7 TH/MM3 Monocytes # (Auto) 1.0 TH/MM3 Eosinophils # (Auto) 0.0 TH/MM3 Basophils # (Auto) 0.1 TH/MM3 CBC Comment DIFF FINAL Differential Comment Sodium Level 137 MEQ/L Potassium Level 4.3 MEQ/L Chloride Level 99 MEQ/L Carbon Dioxide Level 28.7 MEQ/L Anion Gap 9 MEQ/L Blood Urea Nitrogen 18 MG/DL Creatinine 1.23 MG/DL Estimat Glomerular Filtration 82 ML/MIN Rate Random Glucose 105 MG/DL Calcium Level 9.4 MG/DL Total Bilirubin 0.5 MG/DL Aspartate Amino Transf 35 U/L (AST/SGOT) Alanine Aminotransferase 65 U/L (ALT/SGPT) Alkaline Phosphatase 75 U/L Total Protein 8.6 GM/DL Albumin 4.5 GM/DL Salicylates Level 3.2 MG/DL Acetaminophen Level LESS THAN 2.0 MCG/ML Ethyl Alcohol Level LESS THAN 3 MG/DL MDM Medical Decision Making Medical Screen Exam Complete: Yes Emergency Medical Condition: Yes Differential Diagnosis Schizophrenia, substance abuse, drug abuse mood disorder, auditory hallucinations, other Narrative Course Patient was seen and examined. Labs were obtained and reviewed with exception of urine drug screen is currently pending. Patient medically cleared for further treatment and evaluation by psych. Final disposition per psych. Diagnosis Primary Impression: Auditory hallucinations Condition: Stable Jagjit Leos Aug 03, 2016 08:55
[2016-08-03] MEDS ORDERED: NICOTINE 21 MG/24 HR PATCH TD ONE (09:00)
[2016-08-03 09:12] LABS: AUTOMATED NEUTROPHIL # 7.7 TH/MM3 (1.8-7.7); BASOPHIL # 0.1 TH/MM3 (0-0.2); BASOPHIL % 0.6 % (0.0-2.0); EOSINOPHIL % 0.4 % (0.0-4.0); HEMATOCRIT 48.2 % (39.0-51.0); HEMO FLAGS DIFF FINAL; LYMPH % 15.9 % (9.0-44.0); LYMPHOCYTE # 1.7 TH/MM3 (1.0-4.8); MEAN CELL VOLUME 88.2 FL (80.0-100.0); MEAN CORPUSCULAR HEMOGLOBIN 29.9 PG (27.0-34.0); MONO % 9.2 % (0.0-8.0); NEUT % 73.9 % (16.0-70.0); PLATELET COUNT 316 TH/MM3 (150-450); RED BLOOD COUNT 5.47 MIL/MM3 (4.50-5.90); WHITE BLOOD COUNT 10.5 TH/MM3 (4.0-11.0)
[2016-08-03 09:27] LABS: ANION GAP 9 MEQ/L (5-15)
[2016-08-03 09:30] LABS: ALKALINE PHOSPHATASE 75 U/L (45-117); ALT (GPT) 65 U/L (12-78); AST (GOT) 35 U/L (15-37); BICARBONATE 28.7 MEQ/L (21.0-32.0); BLOOD UREA NITROGEN 18 MG/DL (7-18); CHLORIDE 99 MEQ/L (98-107); GLOMERULAR FILTRATION RATE 82 ML/MIN (>89); POTASSIUM 4.3 MEQ/L (3.5-5.1); SODIUM (NA) 137 MEQ/L (136-145); TOTAL BILIRUBIN ADULT 0.5 MG/DL (0.2-1.0)
[2016-08-03 09:38] LABS: ACETAMINOPHEN LESS THAN 2.0 MCG/ML (10.0-30.0)
[2016-08-03 09:56] LABS: AMPHETAMINE, URINE NEG (NEG); BARBITURATES, URINE NEG (NEG); COCAINE, URINE NEG (NEG)
[2016-08-03 10:45] VITALS: BP 137/89; PULSE 100; RESP 18; TEMP 97.3; O2SAT 96
== END 2016-08-03 13:03 ==
LOC: NEPA 04:35 → NEPJ 13:03
DX: R44.0 Auditory hallucinations (principal); I10 Essential (primary) hypertension; F20.9 Schizophrenia, unspecified; F17.210 Nicotine dependence, cigarettes, uncomplicated; F41.8 Other specified anxiety disorders; F10.10 Alcohol abuse, uncomplicated
CPT/HCPCS: 80053; 80307; 80320; 80329; 85025; 99285; G0480